=== PATIENT | male | born 1945 | race Hispanic/Latino ===

== ENCOUNTER 2021-04-03 12:18 | Outpatient (CLI) | payer MEDICARE ==
--- NOTE | 2021-04-03 14:53 | XRay Report ---
XR hip 2-3V LT INDICATION / CLINICAL INFORMATION: LEFT HIP PAIN. COMPARISON: None available. FINDINGS: BONES/JOINT(S): No acute fracture or subluxation. No significant degenerative changes. SOFT TISSUES: No significant abnormality. ADDITIONAL FINDINGS: None. Signer Name: Jose Gonzalez MD Signed: 04/03/2021 2:49 PM Workstation Name: [id number]
--- NOTE | 2021-04-03 15:07 | XRay Report ---
Left knee, 3 views HISTORY: Pain COMPARISON: None FINDINGS: No acute fracture or malalignment. There is mild osteoarthritis of the left knee with osteo chondral body projecting in the anterior knee joint space. No sizable joint effusion. IMPRESSION: No acute process. Signer Name: Marcell Winston MD Signed: 04/03/2021 3:02 PM Workstation Name: [id number]
--- NOTE | 2021-04-03 15:08 | XRay Report ---
Lumbar spine, 5 views HISTORY: Low back pain COMPARISON: None FINDINGS: Alignment is normal. Vertebral body heights are intact. There is no evidence of fracture. Severe disc space height loss noted at L2-L3 and L4-L5. No other skeletal abnormality. Signer Name: Marcell Winston MD Signed: 04/03/2021 3:03 PM Workstation Name: [id number]
--- NOTE | 2021-04-03 15:11 | XRay Report ---
CHEST PA AND LATERAL VIEWS INDICATION: DYSPNEA ON EXERTION. COMPARISON: None. FINDINGS: Support devices: None. Heart: Within normal limits. Lungs/Pleura: No acute pulmonary or pleural findings. IMPRESSION: 1. No acute findings. Signer Name: Dominic Rojas MD Signed: 04/03/2021 3:07 PM Workstation Name: [email or web address]
== END 2021-04-03 12:19 | disposition home or self-care (01) ==
LOC: SPVIMAG 12:18
PROVIDERS: ATTEND Internal Medicine
DX: M17.12 Unilateral primary osteoarthritis, left knee (principal); M25.552 Pain in left hip; M54.16 Radiculopathy, lumbar region; R06.00 Dyspnea, unspecified
CPT/HCPCS: 71046; 72100